=== PATIENT | male | born 1995 | race Caucasian/White ===

== ENCOUNTER 2024-12-05 12:31 | Inpatient (IN) ==
--- NOTE | 2024-12-05 12:50 | Emergency Department Note ---
Impression & Plan Displaced fracture of tibia, Displaced fracture of fibula, Injury of left leg, Leg pain ED Provider Note CHIEF COMPLAINT: Left leg injury HISTORY OF PRESENTING ILLNESS: The patient is a 29-year-old male who presents to the emergency department due to a left leg injury. The patient reports that a tree limb kicked back and hit his left lower leg while he was cutting a tree. Confirms being able to feel and move toes. Patient states he took an ibuprofen and his pain is controlled. Confirms all of his pain on the lateral aspect of his left taylor. Denies all other ROS. REVIEW OF SYSTEMS: See HPI for pertinent positives and pertinent negatives. ALLERGIES: NKDA MEDICATIONS: Does not currently take any medications. PAST MEDICAL HISTORY: Denies past medical history. PHYSICAL EXAM: VITALS: Vitals are noted on the nurse's note and reviewed by myself. Vital signs stable. GENERAL: 29-year-old male, sitting to his side holding his left leg, nondiaphoretic, well-developed well-nourished. SKIN: Capillary reflex less than 2 seconds. HEART: Regular rate and rhythm without murmurs gallops or rubs. LUNGS: Clear to auscultation bilaterally without wheezes, rales or rhonchi. No retractions or accessory muscle use. ABDOMEN: Soft, nontender, without masses or organomegaly. No guarding or rebound tenderness. MUSCULOSKELETAL/NEURO: Gross deformity of left lower leg of tibia and fibula noted on physical exam. Patient is able to wiggle his toes and has full sensation. Patient has limited range of motion due to instability. Leg was propped up with rolled up towels for support and comfort. no pedal edema. No calf tenderness. Patient was alert and oriented. No focal neurological deficits. DIFFERENTIAL DIAGNOSIS: Contusion, fracture, sprain, strain, compartment syndrome, tendon or ligament injury, other injury, nerve injury, soft tissue hematoma, dislocation, fat embolism, infection, among others. ED COURSE AND MEDICAL DECISION MAKING: HISTORY FROM INDEPENDENT HISTORIAN: The patient himself. MEDICATIONS GIVEN: Tylenol 1000 mg IV INTERPRETATION OF LABS: I interpreted the labs with full lab results as below in the lab section of this note. Pertinent lab results discussed in the MDM section below. INTERPRETATION OF IMAGING: Imaging studies were interpreted by myself and read by radiology as per the imaging section of this note. X-ray tibia/fibula -displaced and angulated fracture of the tibial and fibular midshaft's. Mild comminution of the left fracture is seen. Joint spaces are well-preserved. Soft tissue swelling seen. CONSULTATIONS: A consultation with Elaine Freeman on-call orthopedics was placed - Dr. Solis. A thorough discussion was had with Dr. Soils regarding the mechanism of injury, x-ray report, and patient's current workup at this time. I did inform that the patient would need surgery and asked him to take a look at the x-ray himself. He confirmed that it would need surgical repair and that he would repair it in the morning. Instructed me to place the patient in a posterior long orthoglas cast for support until the procedure, to obtain basic labs, control pain, and that Dr. Moore would stop down in the emergency department to see the patient himself to place admission orders. MDM SUMMARY: The patient is a 29-year-old male who presents to the emergency department due to a left leg injury. Patient is neurovascularly intact on exam. Pants were cut removal due to discomfort and the knee-high boot was slowly removed due to pain and discomfort. After removal of the boot and obvious deformity of the left lower leg was appreciated. Leg was supported with rolled up towels. Patient confirmed that his pain was controlled with an ibuprofen that he took on his way here. An x-ray of the left extremity was obtained. A consultation with orthopedics was placed. X-ray of the left tibia/fibula resulted in a displaced and angulated fracture of the tibial and fibular midshaft. Patient was informed of this diagnoses and upon reevaluation of his pain requested Tylenol. Due to the patient needing surgical correction of the fracture an IV was placed for basic lab draw as well as IV Tylenol administration. A splint and minor realignment was applied to the extremity for support until surgery. Patient tolerated this well and stated his pain was controlled. I did consult with on-call orthopedics - Dr. Solis -which can be seen in detail above. Elaine Freeman orthopedic provider Dr. Moore then came down to the emergency department himself to evaluate the patient and discussed the surgical procedure tomorrow. I had a thorough discussion with him regarding patient's workup and pain control in the emergency department upon his stay. Dr. Moore confirmed that him and his PA would put in orders for admission which were placed. I then reached out to case management informing them that the patient would be admitted by the orthopedic team. The remainder of the patient's care will be up to the discretion of the hospitalist team and orthopedic team completing his surgical procedure tomorrow. The patient was able to ask questions and was admitted in stable condition. DIAGNOSIS: Displaced fracture of tibia, displaced fracture of fibula, injury left leg, leg pain The chart was completed utilizing [employer] Speech voice recognition software. Grammatical errors, random word insertions, pronoun errors, and incomplete sentences are an occasional consequence of this system due to software limitations, ambient noise, and hardware issues. Any formal questions or concerns about the content, text, or information contained within the body of this dictation should be directly addressed to the provider for clarification. Past Med/Surg History Problem List (Updated 12/05/24 @ 20:17 by Yasmeen Cavazos PA-C) Leg pain (Acute) Injury of left leg (Acute) Displaced fracture of fibula (Acute) Displaced fracture of tibia (Acute) Closed fracture of shaft of left tibia and fibula Social History Smoking Status: Never smoker Feels Safe at Home: Yes Allergies Allergies Allergy/AdvReac Type Severity Reaction Status Date / Time No Known Allergies Allergy Unverified 12/05/24 15:16 Home Meds Home Medications Medication Instructions Recorded Confirmed No Known Home Medications 12/05/24 12/05/24 Results & Data (ED) Vital Signs Vital Signs - 24 hr 12/05/24 12:43 12/05/24 14:48 12/05/24 19:00 Temperature 36.7 C Temperature Source Temporal Artery Scan Pulse Rate 71 Pulse Rate [Finger] 72 60 Pulse Rhythm Regular Pulse Strength Normal Respiratory Rate 20 15 19 Respiratory Effort / Characteristics Non-Labored Spontaneous Non-Labored Spontaneous Non-Labored Respiratory Depth Normal Normal Normal Respiratory Pattern Regular Blood Pressure 113/66 Blood Pressure [Left Arm] 109/71 105/58 L Blood Pressure Mean 81 Blood Pressure Mean [Left Arm] 83 73 Pulse Oximetry 98 97 98 Oxygen Delivery Method Room Air Room Air Room Air Sepsis Recent Fever Within 48 Hours No Sepsis New/Unexplained Change in Mental Status N/A Sepsis Action Taken by Nursing No Action Required 12/05/24 19:00 Temperature Temperature Source Pulse Rate Pulse Rate [Finger] Pulse Rhythm Pulse Strength Respiratory Rate Respiratory Effort / Characteristics Non-Labored Respiratory Depth Normal Respiratory Pattern Blood Pressure Blood Pressure [Left Arm] Blood Pressure Mean Blood Pressure Mean [Left Arm] Pulse Oximetry Oxygen Delivery Method Sepsis Recent Fever Within 48 Hours Sepsis New/Unexplained Change in Mental Status Sepsis Action Taken by Nursing Laboratory Data 12/05/24 14:34 12/05/24 14:34 Lab Results 12/05/24 Range/Units 14:34 WBC 13.80 H (4.8-10.8) K/ul RBC 4.45 L (4.70-6.10) M/uL Hgb 13.0 L (14.0-18.0) g/dl Hct 38.2 L (42.0-52.0) % MCV 85.8 (80.0-100.0) fL MCH 29.2 (25.0-34.0) pg MCHC 34.0 (32.0-36.0) g/dL RDW Std Deviation 37.8 (36.4-46.3) fL RDW Coeff of Merary 12.0 (11.5-14.5) % Plt Count 325 (130-400) K/uL MPV 9.7 (9.4-12.4) fL Immature Gran % (Auto) 0.5 % Neut % (Auto) 88.9 % Lymph % (Auto) 5.8 % Williamson % (Auto) 4.3 % Eos % (Auto) 0.1 % Baso % (Auto) 0.4 % Neut # (Auto) 12.28 H (1.40-6.50) K/uL Lymph # (Auto) 0.80 L (1.20-3.40) K/uL Williamson # (Auto) 0.59 (0.11-0.59) K/uL Eos # (Auto) 0.01 (0.00-0.50) K/uL Baso # (Auto) 0.05 (0.00-0.20) K/uL Immature Gran # (Auto) 0.07 (0.01-0.20) K/uL Sodium 136 (136-145) mmol/L Potassium 3.9 (3.5-5.1) mmol/L Chloride 102 (98-107) mmol/L Carbon Dioxide 29 (21-32) mmol/L Anion Gap 5 (3-11) BUN 17 (6-23) mg/dl Creatinine 0.77 (0.6-1.4) mg/dl Est Cr Clr Drug Dosing 122.5 ml/min eGFR 124.29 BUN/Creatinine Ratio 22.1 H (10-20) Glucose 121 H (70-99(Fasting)) mg/dl Calcium 9.1 (8.6-10.3) mg/dl Total Bilirubin 0.9 (0.2-1.0) mg/dl AST 28 (13-39) U/L ALT 22 (7-52) U/L Alkaline Phosphatase 64 (34-104) U/L Total Protein 7.4 (6.0-8.3) gm/dl Albumin 4.7 (3.4-5.0) gm/dl Globulin 2.7 (2.5-4.0) gm/dl Albumin/Globulin Ratio 1.7 (0.9-2) Administered Medications Discontinued Medications Acetaminophen (Ofirmev) 1,000 mg in 100 mls @ 400 mls/hr IV NOW STA Stop: 12/05/24 14:57 Last Infusion: 12/05/24 15:07 Dose: Infused Documented By: Admin: 12/05/24 14:46 Dose: 400 mls/hr Documented By: BON Imaging Data Radiologist's Impression: Ankle X-Ray 12/05/24 13:01 XR ankle LT 2V HISTORY: 29 years-old Male injury . Pain of the left leg and ankle status post trauma COMPARISON: Tibia and fibular radiographs of same day TECHNIQUE: 2 views of the left ankle FINDINGS: Partially imaged acute, comminuted, angled and displaced mid diaphyseal tibia and fibular fractures with soft tissue swelling. Limited evaluation of the ankle secondary to positioning without acute fracture or dislocation identified. IMPRESSION: 1. Limited exam secondary to positioning without acute fracture or dislocation of the ankle identified. 2. Partially imaged acute mid diaphyseal tibial and fibular fractures with soft tissue swelling. ACT 112: Negative or not required by law. The above report was generated using voice recognition software. It may contain grammatical, syntax or spelling errors. Electronically signed by: Genaro Aiken M.D. 12/05/2024 1:54 PM Tibia/Fibula X-Ray 12/05/24 13:01 XR tibia fibula LT 2V CLINICAL HISTORY: injury TECHNIQUE: 2 radiographic views of the left leg were obtained. Comparison: None available at the time of this dictation. FINDINGS: Displaced and angulated fractures of the tibial and fibular mid shafts are seen. Mild comminution of the left fracture is seen. Joint spaces are well-preserved. Soft tissue swelling is seen. IMPRESSION: Displaced angulated fractures of the midshaft of the tibia and fibula. ACT 112: Negative or not required by law. Electronically signed by: Bill Cintron M.D. 12/05/2024 1:53 PM Discharge Plan Visit Data Chief Complaint: Leg Injury/Pain Stated Complaint: L LEG INJURY, WAS HURT IN THE [facility] ED Provider: Mehdi Wayne ED Midlevel Provider: Yasmeen Cavazos Discharge Problem: Displaced fracture of tibia, Displaced fracture of fibula, Injury of left leg, Leg pain Patient Disposition: Admitted As Inpatient Condition: Good Forms Stand Alone Forms: [facility] Prescriptions Prescriptions: No Action No Known Home Medications Referrals Referrals: PCP,NO [Physician] - Discharge Problem: Displaced fracture of tibia Qualifiers: Encounter type: initial encounter Tibia location: shaft Fracture type: closed F racture morphology: comminuted Laterality: left Qualified Code(s): S82.252A - Displaced comminuted fracture of shaft of left tibia, initial encounter for closed fracture Displaced fracture of fibula Qualifiers: Encounter type: initial encounter Fibula location: shaft Fracture type: closed Fracture morphology: comminuted Laterality: left Qualified Code(s): S82.452A - Displaced comminuted fracture of shaft of left fibula, initial encounter for closed fracture Injury of left leg Qualifiers: Encounter type: initial encounter Qualified Code(s): S89.92XA - Unspecified injury of left lower leg, initial encounter Leg pain Qualifiers: Laterality: left Qualified Code(s): M79.605 - Pain in left leg
--- NOTE | 2024-12-05 13:54 | XRay Report ---
XR tibia fibula LT 2V CLINICAL HISTORY: injury TECHNIQUE: 2 radiographic views of the left leg were obtained. Comparison: None available at the time of this dictation. FINDINGS: Displaced and angulated fractures of the tibial and fibular mid shafts are seen. Mild comminution of the left fracture is seen. Joint spaces are well-preserved. Soft tissue swelling is seen. IMPRESSION: Displaced angulated fractures of the midshaft of the tibia and fibula. ACT 112: Negative or not required by law. Electronically signed by: Bill Cintron M.D. 12/05/2024 1:53 PM
--- NOTE | 2024-12-05 13:56 | XRay Report ---
XR ankle LT 2V HISTORY: 29 years-old Male injury . Pain of the left leg and ankle status post trauma COMPARISON: Tibia and fibular radiographs of same day TECHNIQUE: 2 views of the left ankle FINDINGS: Partially imaged acute, comminuted, angled and displaced mid diaphyseal tibia and fibular fractures w ith soft tissue swelling. Limited evaluation of the ankle secondary to positioning without acute frac ture or dislocation identified. IMPRESSION: 1. Limited exam secondary to positioning without acute fracture or dislocation of the ankle identifie d. 2. Partially imaged acute mid diaphyseal tibial and fibular fractures with soft tissue swelling. ACT 112: Negative or not required by law. The above report was generated using voice recognition software. It may contain grammatical, syntax o r spelling errors. Electronically signed by: Genaro Aiken M.D. 12/05/2024 1:54 PM
[2024-12-05] MEDS: ACETAMINOPHEN 1,000 MG/100 ML VIAL IV STA (14:46)
[2024-12-05 14:59] LABS: Basophils # (auto) 0.05 K/uL (0.00-0.20); Basophils % (auto) 0.4 %; Eosinophils # (auto) 0.01 K/uL (0.00-0.50); Eosinophils % (auto) 0.1 %; Hematocrit (blood only) 38.2 % (42.0-52.0); Immature Granulocytes # (auto) 0.07 K/uL (0.01-0.20); Immature Granulocytes % (auto) 0.5 %; Lymphocytes % (auto) 5.8 %; Mean Corpuscular Hemoglobin 29.2 pg (25.0-34.0); Mean Corpuscular Volume 85.8 fL (80.0-100.0); Mean Platelet Volume 9.7 fL (9.4-12.4); Monocytes # (auto) 0.59 K/uL (0.11-0.59); Monocytes % (auto) 4.3 %; Neutrophils # (auto) 12.28 K/uL (1.40-6.50); Neutrophils % (auto) 88.9 %; Platelet Count 325 K/uL (130-400); RDW Standard Deviation 37.8 fL (36.4-46.3); Red Blood Count 4.45 M/uL (4.70-6.10)
[2024-12-05 15:05] LABS: Albumin Globulin Ratio 1.7 (0.9-2); Albumin Level 4.7 gm/dl (3.4-5.0); BUN Creatinine Ratio 22.1 (10-20); Bilirubin,Total 0.9 mg/dl (0.2-1.0); Calcium 9.1 mg/dl (8.6-10.3); Creatinine Clr Calc Pharmacy 122.5 ml/min; Globulin 2.7 gm/dl (2.5-4.0); Potassium 3.9 mmol/L (3.5-5.1); Total Protein 7.4 gm/dl (6.0-8.3)
[2024-12-05] MEDS ORDERED: ONDANSETRON INJ 2 MG/ML 2 ML VIAL IV PRN (16:53)
[2024-12-05] MEDS ORDERED: ACETAMINOPHEN 325 MG TAB PO PRN (16:53)
[2024-12-05] MEDS ORDERED: TRANEXAMIC ACID / 0.7% NACL 1,000 MG/100 ML BAG IV ONE (17:01)
[2024-12-05] MEDS ORDERED: HYDROmorphone INJ 0.5 MG/0.5 ML SYR IV PRN ×2 (17:02)
[2024-12-05] MEDS ORDERED: oxyCODONE HCL IR 5 MG TAB (IMMEDIATE RELEASE) PO PRN ×2 (17:02)
[2024-12-05] MEDS ORDERED: ACETAMINOPHEN 500 MG TAB PO PRN (17:03)
--- NOTE | 2024-12-05 17:26 | History & Physical Report ---
Date of Service December 05, 2024 Assessment & Plan (1) Closed fracture of shaft of left tibia and fibula: I explained the diagnosis, prognosis, and recommended treatment of closed or open reduction and intramedullary nail fixation. We also discussed the alternatives of casting or plate and screw fixation. We discussed the implants, techniques, expectations for outcome, and required rehabilitation. I also discussed the risks of the injury and surgery include, but are not limited to, infection, nerve or vessel injury, arthrofibrosis of the knee or ankle, failure to heal, malunion or rotation deformity of the limb, failure of the implants, need for secondary surgery, symptomatic implants, knee pain, pain syndromes, blood clots, and complications related anesthesia. He and his asked appropriate questions, demonstrated a good understanding of their option, and want to proceed with surgical treatment of the tibia fracture as we had recommended. N.p.o. at midnight Pain management Elevation of the limb On-call to the OR tomorrow for left tibia and fibula fracture closed or open reduction and intramedullary nail fixation. 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 He had immediate deformity and was brought to the emergency room. He denies any numbness or tingling. He denies any previous injuries to this area. Allergies Allergy/AdvReac Type Severity Reaction Status Date / Time No Known Allergies Allergy Unverified 12/05/24 15:16 Home Medications Medication Instructions Recorded Confirmed Type No Known Home Medications 12/05/24 12/05/24 History Past Med/Surg History Problem List (Updated 12/05/24 @ 17:23 by Omar Moore MD) Closed fracture of shaft of left tibia and fibula Social History Smoking Status: Never smoker Feels Safe at Home: Yes Review of Systems All systems reviewed & are unremarkable except as noted in HPI & below. Physical Exam Left lower extremity: Splint was applied and it was clean and dry. Full motor to his toes. Sensation intact. Palpable dorsalis pedis pulse. Compartments soft and tolerant of compression. Constitutional WD/WN, vitals as above no acute distress and not intoxicated appearing Respiratory normal respiratory effort; no labored breathing Cardiovascular Extremities: normal capillary refill Results & Data Results & Data Laboratory Results H & H 12/05/24 Range/Units 14:34 Hgb 13.0 L (14.0-18.0) g/dl Hct 38.2 L (42.0-52.0) % Diagnostic Findings Radiographs of the left tibia/fibula and ankle films demonstrate short oblique fracture of the tibial diaphysis and fibular diaphysis with angulation and displacement. PG Care Time/CCT Total # of Minutes Spent Total Time Spent with Patient: Total time spent is greater than 50% in coordination of care (as documented) at patient's floor/unit and/or counseling patient: Coding Level of Care Code 75962 INT INP/OBS CARE 3/75MIN (57 - DECISION FOR SURGERY) Diagnoses Closed fracture of shaft of left tibia and fibula, initial encounter S82.202A; S82.402A Encounter type: initial encounter (1) Closed fracture of shaft of left tibia and fibula Encounter type: initial encounter Qualified Code(s): S82.202A - Unspecified fracture of shaft of left tibia, initial encounter for closed fracture; S82.402A - Unspecified fracture of shaft of left fibula, initial encounter for closed fracture
[2024-12-06] MEDS: ceFAZolin 2000MG 2,000 MG/15 ML SYR IV SCH (09:37)
--- NOTE | 2024-12-06 15:15 | Orthopedic Progress Note ---
Date of Service December 06, 2024 Assessment & Plan (1) Displaced fracture of tibia: Significant time was spent describing the diagnosis and treatment options. Given the angulation of the fracture I strongly recommended intramedullary nail fixation of the left leg. I told him I think this would give him the best functional outcome and the quickest recovery. He discussed things with his and he decided he wanted conservative treatment with a cast. I once again reiterated that I strongly recommended intramedullary nail fixation of the left leg, but again, he wanted to proceed with closed reduction and casting. I reduced his left leg at bedside. I placed him in a long-leg cast. I talked to him and his about the signs of compartment syndrome and to return to the emergency room if he begins having symptoms. I will see him in the office on Monday. Will get x-rays then. I once again reiterated that I could still do intramedullary nail fixation of the tibia next week and he should strongly consider it while discussing things with his family. Will discharge him to home on aspirin 81 mg twice a day. He will just take ibuprofen as needed for pain. Ebony Mckinley was seen and examined at bedside today. Overall he is not having too much pain in the left leg. His is with him at bedside. He had no acute events overnight.. Review of Systems All systems reviewed & are unremarkable except as noted in HPI & below. Physical Exam On physical exam of the left leg, the trauma splint was removed. There was a significant angulation of the left leg. The bone was tenting the skin. There was some swelling and ecchymosis. He had range of motion of his ankle on of his foot. No signs of a compartment syndrome.. Results & Data Results & Data Laboratory Results . Diagnostic Findings . PG Care Time/CCT Total # of Minutes Spent Total Time Spent with Patient: Total time spent is greater than 50% in coordination of care (as documented) at patient's floor/unit and/or counseling patient: Coding Level of Care Code 96399 Post Operative Follow-Up Diagnoses Displaced fracture of tibia S82.252A Encounter type: initial encounter Fracture morphology: comminuted Fracture type: closed Laterality: left Tibia location: shaft (1) Displaced fracture of tibia Encounter type: initial encounter Fracture morphology: comminuted Fracture type: closed Laterality: left Tibia location: shaft Qualified Code(s): S82.252A - Displaced comminuted fracture of shaft of left tibia, initial encounter for closed fracture
--- NOTE | 2024-12-09 08:41 | Discharge Summary ---
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 He had immediate deformity and was brought to the emergency room. He denies any numbness or tingling. He denies any previous injuries to this area. Admission Exam (Per Admitting) Left lower extremity: Splint was applied and it was clean and dry. Full motor to his toes. Sensation intact. Palpable dorsalis pedis pulse. Compartments soft and tolerant of compression. Principal Diagnosis Same as "Discharge Diagnosis" noted below under Discharge Instructions. Discharge Exam On physical exam of the left leg, the trauma splint was removed. There was a significant angulation of the left leg. The bone was tenting the skin. There was some swelling and ecchymosis. He had range of motion of his ankle on of his foot. No signs of a compartment syndrome.. Discharge Data Procedures Performed Operation Date: 12/06/24 12:20 <No data on this case meets the specified criteria> Hospital Course (1) Closed fracture of shaft of left tibia and fibula: On December 05, 2024 Elías arrived at [facility] emergency department after lumbar an incident. He noted a piece of lumber rolled up on his leg. He had immediate deformity of the left lower extremity. He was transferred to the emergency department for evaluation. During evaluation, was found that he had a tib-fib fracture to the left lower extremity. He was originally splinted in the emergency department and then transferred to the general orthopedic floor. If this is discussed numerous times of the recommendation of operative fixation of his fractures but at this point, he wishes to proceed with conservative treatment. He was placed in a long-leg cast and started on aspirin for DVT prophylaxis. He will follow-up in the office on Monday for reevaluation of his fracture. He was discharged in stable condition. Encounter type: initial encounter Qualified Code(s): S82.202A - Unspecified fracture of shaft of left tibia, initial encounter for closed fracture; S82.402A - Unspecified fracture of shaft of left fibula, initial encounter for closed fracture PG Care Time/CCT Total # of Minutes Spent Total Time Spent with Patient: Total time spent is greater than 50% in coordination of care (as documented) at patient's floor/unit and/or counseling patient: Discharge Plan Discharge Items Patient Disposition: Home - Self-Care Reason For Visit: TIB/FIB FRACTURE Discharge Diagnosis: Same Condition on Discharge: Good Activity: As commented below Lifting: None Weightbearing: Left non-weightbearing Non-emergency contact: Surgeon Call non-emergency contact if: your temperature is above 101.5, your wound has increased redness, your wound has increased drainage and your wound pain has increased Follow-up/Referrals: Abhishek Womack MD [Primary Care Provider] - Diet: Regular Addtl Attending Provider Instructions: General Orthopedic Discharge Instructions Activity: Non-Weightbearing to the left Leg Diet: You may resume previous diet. Medications: 1. .Resume previous home medications unless otherwise instructed 2. Aspirin 81 mg Twice a day until directed. Dressing Care: Keep Cast dry. Showering: Keep Cast Dry Things To Watch For: 1. Compartment Syndrome- This was discussed when cast was being applied. 3. Fever above 102 degrees Fahrenheit. 4. Unusual chest pain or shortness of breath. 5. Call [facility] at with any of the above problems. Follow-Up Visit: Follow-up with Dr. Solis on Monday. If you have any questions call . This is the number to call for appointment. Pending Studies at Discharge: No Stand-Alone Forms: My [facility], Smoking Cessation Medications and DC Order Prescriptions: New aspirin 81 mg capsule 81 mg PO BID Qty: 60 0RF Discharge Orders: Discharge Order (Routine); Ordered 12/06/24 Ordered By: Genaro Iyer Admission Data Admit Date/Time: 12/05/24 16:54 Attending Provider: To Solis Admit Provider: To Solis Primary Care Provider: Abhishek Womack Other Interventions: Discharge Summary Assessment (RN) Last Done: 12/06/24 15:14
== END 2024-12-06 16:00 | disposition home or self-care (01) | DRG 563 ==
LOC: ED 12:31 → 3E 16:54
DX: W20.8XXA Other cause of strike by thrown, projected or falling object, initial encounter; Y92.89 Other specified places as the place of occurrence of the external cause; Y93.H2 Activity, gardening and landscaping; S82.402A Unspecified fracture of shaft of left fibula, initial encounter for closed fracture; S82.202A Unspecified fracture of shaft of left tibia, initial encounter for closed fracture